=== PATIENT | female | born 1950 | race Caucasian/White ===

== ENCOUNTER 2016-12-12 11:10 | Inpatient (IN) | payer OTHER ==
[2016-12-04 16:38] LABS: ASCORBIC ACID (UR NOT ORDER) NEG (NEG); BILIRUBIN, URINE NEGATIVE (NEG); KETONE, URINE NEGATIVE (NEG); LEUKOCYTE ESTERASE(NOT OR SMALL (NEG); WBC (NOT ORDERED) (RFLEX) 6 (0-5)
--- NOTE | ~2016-12-12 | OP ---
Record Of Operation [facility] [address] [place]. [address] NAME: LATESHA COLEMAN : 46 STATUS : ADM IN PAT#: [id number] AGE: 66 ADM/REG DATE : 12/12/16 MR#: [id number] REPORT SERV DATE: 12/13/16 DICTATED BY: MALLORY CALIXTO DATE: 12/13/16 REPORT STATUS : Draft TRANSCRIBED BY: MODL DATE: 12/13/16 DATE OF PROCEDURE: 12/12/2016 SURGEON: Mallory Calixto M.D. TITLE OF OPERATION: Left laparoscopic radical nephrectomy. PREOPERATIVE DIAGNOSES: 1. Left renal mass. 2. Left renal atrophy. 3. Chronic pyelonephritis. POSTOPERATIVE DIAGNOSES: 1. Left renal mass. 2. Left renal atrophy. 3. Chronic pyelonephritis. INDICATIONS: Mrs. Coleman is a 66-year-old female, with an atrophic infected left kidney. She has recurrent episodes of pyelonephritis. She has a concern for left renal mass. She is here for left laparoscopic nephrectomy. ANESTHESIA: General. COMPLICATIONS: None. IMPLANTS: 16-Turkmen Haddad catheter. SPECIMEN: Left kidney. NARRATIVE: The patient was brought to the operating room, identified by her wristband. General anesthesia was induced and Ancef was given for preoperative antibiotics. She was placed in modified left flank position and secured to the bed with pads and tape. She was then prepped and draped in sterile fashion. Her abdomen was insufflated to a pressure of 15 mmHg using a Veress needle. A 12 mm port was placed in the left lower quadrant under direct vision. The abdomen was inspected, there were minimal adhesions. A 15 mm port was placed in a periumbilical position and a 12 mm port was placed in the upper midline as well. The patient was rotated, I dropped the colon along the white line of Toldt exposing retroperitoneum. The colon was reflected medially to expose the aorta. The spleen and pancreas were reflected superiorly off the kidney. I entered the retroperitoneum beneath the gonadal vein and ureter. There was a solitary renal artery and vein. These were taken en bloc with a 45 mm endovascular stapler. There were no enlarged lymph nodes around the aorta. The superior and lateral attachments of the kidney were taken with a LigaSure device. The ureter and gonadal vein were clipped and divided. The adrenal gland was spared. The kidney was placed into a 15 mm EndoCatch bag. There was no ongoing bleeding. The abdomen was desufflated. The 12 mm ports were closed with 0 Vicryl suture using Marcin- Karlee device. The 15 mm port was removed. The incision was enlarged at the skin and Record Of Operation [address] [address] NAME: LATESHA COLEMAN : 46 STATUS : ADM IN PAT#: [id number] AGE: 66 ADM/REG DATE : 12/12/16 MR#: [id number] REPORT SERV DATE: 12/13/16 DICTATED BY: MALLORY CALIXTO DATE: 12/13/16 REPORT STATUS : Draft TRANSCRIBED BY: MARGRET DATE: 12/13/16 fascia levels. The kidney in the EndoCatch bag were removed and sent to pathology for analysis. The fascia was closed with a 0 Monocryl suture in a [id number] fashion. The wounds were irrigated clear. The subcutaneous tissues were closed with a 3-0 Vicryl suture. Skin was closed with 4-0 Monocryl suture in a subcuticular fashion. Dermabond dressing was placed. The patient was awoken from anesthesia and transferred to recovery room in stable condition. There were no complications. SARAH/MARGRET Mallory Calixto MD / [id number] CC: Mallory Calixto MD
--- NOTE | ~2016-12-12 | PREOPHP ---
PreOp History and Physical [address] [place]. [address] NAME: LATESHA COLEMAN : 46 STATUS : DIS IN PAT#: [id number] AGE: 66 ADM/REG DATE : 12/12/16 MR#: [id number] REPORT SERV DATE: 01/05/17 DICTATED BY: MALLORY CALIXTO DATE: 01/05/17 REPORT STATUS : Draft TRANSCRIBED BY: MARGRET DATE: 01/05/17 CHIEF COMPLAINT: Recurrent pyelonephritis. HISTORY OF PRESENT ILLNESS: Ms. Coleman is a very pleasant 66-year-old female with recurrent pyelonephritis. On CT scan, she has an atrophic left kidney with air in the kidney suggestive of this being the source of her recurrent UTIs. She is here for left laparoscopic nephrectomy. PAST MEDICAL HISTORY: 1. Chronic kidney disease, atrophic left kidney, chronic recurrent episodes of pyelonephritis requiring hospitalization. 2. Hypertension. 3. Hypercholesterolemia. 4. Cataracts. 5. Thyroid disease. 6. GERD. PAST SURGICAL HISTORY: Hysterectomy, cholecystectomy, and history of ureteral repair in the past on the left. FAMILY HISTORY: No genitourinary cancer. SOCIAL HISTORY: She does not smoke, drink, or use illegal drugs. MEDICATIONS: Reviewed and are on the chart. ALLERGIES: OMEPRAZOLE. REVIEW OF SYSTEMS: A 12-point review of systems was performed. Pertinent positives listed in the HPI. PHYSICAL EXAMINATION: VITAL SIGNS: Afebrile. Vital signs stable. GENERAL: No acute distress. Appears her stated age. HEENT: Head is normocephalic and atraumatic. LUNGS: Breathing is nonlabored. She is not in respiratory distress. HEART: Pulse is regular in rate and rhythm. ABDOMEN: Soft, nontender, nondistended. NEUROLOGIC: She is alert and oriented x3. EXTREMITIES: There is no cyanosis or edema. LABORATORY DATA: No new labs. IMAGING: No new imaging. ASSESSMENT AND PLAN: Ms. Coleman has an atrophic left kidney with signs and symptoms consistent with recurrent pyelonephritis due to her kidney. It is nonfunctional. We will PreOp History and Physical [address] [address] NAME: LATESHA COLEMAN : 46 STATUS : DIS IN PAT#: [id number] AGE: 66 ADM/REG DATE : 12/12/16 MR#: [id number] REPORT SERV DATE: 01/05/17 DICTATED BY: MALLORY CALIXTO DATE: 01/05/17 REPORT STATUS : Draft TRANSCRIBED BY: MARGRET DATE: 01/05/17 plan to do a left laparoscopic nephrectomy today. Risks and benefits were discussed in detail. Consents were signed. We will proceed as planned. SARAH/MARGRET Mallory Calixto MD / [id number] CC: MD Carlos Eduardo Dinh M.D.
[~2016-12-12 11:10] MED LIST: CALTRA600D PO; COREG6 PO; KLONO5 PO; LEVOTHYROXIN25 MCG PO; MAXZIDE PO; NEXIUM40 PO; NORV10 PO; PRAVACHOL40 MG PO; PROZAC40 MG PO; VITAMIN D2000 UNIT PO
[2016-12-12 16:05] LABS: BASOPHILS 0.2 %; BASOPHILS ABSOLUTE 0.02 10/3/uL (0.0-0.16); EOSINOPHILS 0.3 %; EOSINOPHILS ABSOLUTE 0.04 10/3/uL (0.0-0.53); HEMATOCRIT 35.6 % (36.0-48.0); HEMOGLOBIN 12.5 g/dL (12.0-16.0); IMMATURE GRANULOCYTES 0.3 %; IMMATURE GRANULOCYTES ABSOLUTE 0.04 10/3/uL (0.0-0.11); LYMPHOCYTES 15.9 %; LYMPHOCYTES ABSOLUTE 1.89 10/3/uL (0.67-4.30); MEAN CORPUS HGB CONC 35.1 g/dL (32.0-36.0); MEAN CORPUSCULAR HEMOGLOB 28.7 pg (26.0-34.0); MEAN CORPUSCULAR VOLUME 81.7 fL (80-100); MEAN PLATELET VOLUME 9.2 fL (9.2-13.0); MONOCYTES 2.4 %; MONOCYTES ABSOLUTE 0.28 10/3/uL (0.21-1.20); NEUTROPHILS 80.9 %; NEUTROPHILS ABSOLUTE 9.58 10/3/uL (2.02-8.40); PLATELET COUNT 180 10/3/uL (150-400); RBC DISTRIBUTION WIDTH 14.7 % (12.0-16.0); RED CELL COUNT 4.36 10/6/uL (4.0-5.6)
[2016-12-12 16:15] LABS: MANUAL DIFF NO %; WHITE BLOOD CELLS 11.9 10/3/uL (4.5-10.5)
[2016-12-12 16:19] LABS: BUN (BLOOD UREA NITROGEN) 20 MG/DL (6-23); CHLORIDE, SERUM 99 MMOL/L (96-112); CO2 (CARBON DIOXIDE) 30 MMOL/L (24-34); CREATININE 1.87 MG/DL (0.55-1.02); GFR AFRICAN AMERICAN 31 ML/MIN (>=60); GFR NON AFRICAN AMERICAN 27 ML/MIN (>=60); GLUCOSE, SERUM 109 MG/DL (60-99); SODIUM, SERUM 140 MMOL/L (135-148)
[2016-12-12 16:20] LABS: POTASSIUM, SERUM 2.7 MMOL/L (3.5-5.3)
[2016-12-13 06:52] LABS: BASOPHILS 0 %; EOSINOPHILS 0 %; HEMATOCRIT 35.8 % (36.0-48.0); HEMOGLOBIN 12.3 g/dL (12.0-16.0); IMMATURE GRANULOCYTES 0.4 %; IMMATURE GRANULOCYTES ABSOLUTE 0.05 10/3/uL (0.0-0.11); LYMPHOCYTES 8.8 %; LYMPHOCYTES ABSOLUTE 1.11 10/3/uL (0.67-4.30); MEAN CORPUS HGB CONC 34.4 g/dL (32.0-36.0); MEAN CORPUSCULAR HEMOGLOB 28.2 pg (26.0-34.0); MEAN CORPUSCULAR VOLUME 82.1 fL (80-100); MEAN PLATELET VOLUME 9.4 fL (9.2-13.0); MONOCYTES 3.6 %; MONOCYTES ABSOLUTE 0.45 10/3/uL (0.21-1.20); NEUTROPHILS 87.2 %; PLATELET COUNT 196 10/3/uL (150-400); RBC DISTRIBUTION WIDTH 14.5 % (12.0-16.0); RED CELL COUNT 4.36 10/6/uL (4.0-5.6); WHITE BLOOD CELLS 12.6 10/3/uL (4.5-10.5)
[2016-12-13 06:53] LABS: MANUAL DIFF NO %
[2016-12-13 07:06] LABS: BUN (BLOOD UREA NITROGEN) 18 MG/DL (6-23); CALCIUM, SERUM 9.1 MG/DL (8.5-10.4); CHLORIDE, SERUM 100 MMOL/L (96-112); CO2 (CARBON DIOXIDE) 23 MMOL/L (24-34); GFR AFRICAN AMERICAN 33 ML/MIN (>=60); GFR NON AFRICAN AMERICAN 28 ML/MIN (>=60); GLUCOSE, SERUM 230 MG/DL (60-99); POTASSIUM, SERUM 3.4 MMOL/L (3.5-5.3); SODIUM, SERUM 137 MMOL/L (135-148)
[2016-12-14 07:29] LABS: HEMATOCRIT 32.4 % (36.0-48.0); HEMOGLOBIN 11.1 g/dL (12.0-16.0); MANUAL DIFF YES %; MEAN CORPUS HGB CONC 34.3 g/dL (32.0-36.0); MEAN CORPUSCULAR HEMOGLOB 28.2 pg (26.0-34.0); MEAN CORPUSCULAR VOLUME 82.4 fL (80-100); MEAN PLATELET VOLUME 9.2 fL (9.2-13.0); PLATELET COUNT 175 10/3/uL (150-400); RBC DISTRIBUTION WIDTH 14.9 % (12.0-16.0); RED CELL COUNT 3.93 10/6/uL (4.0-5.6); WHITE BLOOD CELLS 12.6 10/3/uL (4.5-10.5)
[2016-12-14 07:43] LABS: BUN (BLOOD UREA NITROGEN) 13 MG/DL (6-23); CALCIUM, SERUM 8.6 MG/DL (8.5-10.4); CHLORIDE, SERUM 98 MMOL/L (96-112); CO2 (CARBON DIOXIDE) 25 MMOL/L (24-34); CREATININE 1.36 MG/DL (0.55-1.02); GFR AFRICAN AMERICAN 46 ML/MIN (>=60); GFR NON AFRICAN AMERICAN 40 ML/MIN (>=60); GLUCOSE, SERUM 111 MG/DL (60-99); POTASSIUM, SERUM 3.5 MMOL/L (3.5-5.3); SODIUM, SERUM 131 MMOL/L (135-148)
[2016-12-14 08:12] LABS: BAND NEUTROPHILS 1 %; LYMPHOCYTES 19 %; LYMPHOCYTES ABSOLUTE (CALC) 2.39 10/3/uL (0.67-4.30); MONOCYTES 8 %; MONOCYTES ABSOLUTE (CALC) 1.01 10/3/uL (0.21-1.20); PLATELET ESTIMATE ADQ (ADEQUATE); RBC MORPHOLOGY NORM (NORMAL); SEGMENTED NEUTROPHIL (0) 72 %; TOTAL NUCLEATED CELLS 100
[2016-12-14] MEDS ORDERED: PCET PO (15:49)
[2016-12-14] MEDS ORDERED: DSS PO (15:50)
== END 2016-12-14 16:55 | disposition home or self-care (01) | DRG 661 ==
LOC: SDC/OF 11:10 → 4SO 17:16
PROVIDERS: Urology
PROC: 0TT14ZZ Resection of Left Kidney, Percutaneous Endoscopic Approach (ICD-10-PCS; principal; 2016-12-12 13:30)
DX: N28.89 Other specified disorders of kidney and ureter (principal); I12.9 Hypertensive chronic kidney disease with stage 1 through stage 4 chronic kidney disease, or unspecified chronic kidney disease; N11.9 Chronic tubulo-interstitial nephritis, unspecified; N18.9 Chronic kidney disease, unspecified; E78.5 Hyperlipidemia, unspecified; Z87.440 Personal history of urinary (tract) infections; N13.39 Other hydronephrosis
CPT/HCPCS: 36415; 80048; 81001; 84132; 85014; 85018; 85025; 86850; 86900; 86901; 87077; 87086; 87186; 88307; 93005; A9270-GY; J0690; J2250; J2370; J2405; J2710; J2795; J3010